=== PATIENT | female | born 1960 | race Caucasian/White ===

== ENCOUNTER 2021-01-12 11:44 | Outpatient (CLI) | payer OTHER | END 2021-01-12 11:45 | disposition home or self-care (01) | LOC: BICRAD 11:44 | PROVIDERS: ATTEND Family Medicine | DX: M25.561 Pain in right knee (principal) ==

== ENCOUNTER 2021-05-18 10:28 | Outpatient (CLI) | payer OTHER ==
[~2021-05-18 10:28] MED LIST: Iopamidol-370 76% 500 ML 1 ML ONE
== END 2021-05-18 10:29 | disposition home or self-care (01) ==
LOC: BICCT 10:28
PROVIDERS: ATTEND Urology
DX: R35.0 Frequency of micturition (principal); Q64.4 Malformation of urachus; R93.49 Abnormal radiologic findings on diagnostic imaging of other urinary organs
CPT/HCPCS: 74178